=== PATIENT | female | born 1970 | race Two or more races ===

== ENCOUNTER → 2024-08-13 | Outpatient (CLI) | payer MEDICAID, SELFPAY ==
--- NOTE | 2024-08-13 11:00 | XR_ITS ---
Examination: Screening digital mammography, bilateral Computer aided detection 3-D breast Tomosynthesis, bilateral Date and time of exam: August 13, 2024 1122 hours Compared to mammograms dating to January 01, 2013 Indication: Screening Technique: Nonmagnified MLO, CC views of the breasts to been obtained, reconstructed from 3-D Tomosynthesis images. R2 computer aided detection program utilized for evaluation of suspicious masses and/or abnormal calcifications. 3-D Tomosynthesis images obtained. Findings: The breasts are heterogeneously dense, which may obscure small masses 14 mm focal asymmetry 12:00 position left breast mid depth Impression: BI-RADS Category 0: Incomplete: Need additional imaging evaluation 14 mm focal asymmetry 12:00 position left breast mid depth, recommend follow-up spot tomographic views of this asymmetry as well as bilateral breast sonography to complete workup
== END | disposition home or self-care (01) ==
PROVIDERS: PCP Registered Nurse Community Health; Referring Provider Registered Nurse Community Health; Visit Provider Registered Nurse Community Health
DX: Z12.31 Encounter for screening mammogram for malignant neoplasm of breast (principal); R92.333 Mammographic heterogeneous density, bilateral breasts; N64.89 Other specified disorders of breast
CPT/HCPCS: 77063; 77067

== ENCOUNTER → 2024-09-29 | Outpatient (CLI) | payer MEDICAID, SELFPAY ==
--- NOTE | 2024-09-29 09:30 | XR_ITS ---
Examination: Ultrasound soft tissue extremity right groin Date and time: September 29, 2024 1008 hours INDICATIONS: Palpable lump in the right groin noticed beginning several years ago. TECHNIQUE AND FINDINGS: Sonographic images soft tissue right groin No cystic or solid mass IMPRESSION: No cystic or solid mass
== END | disposition home or self-care (01) ==
PROVIDERS: PCP Registered Nurse Community Health; Referring Provider Registered Nurse Community Health; Visit Provider Registered Nurse Community Health
DX: R10.31 Right lower quadrant pain (principal)
CPT/HCPCS: 76882

== ENCOUNTER → 2024-10-01 | Outpatient (CLI) | payer MEDICAID, SELFPAY ==
--- NOTE | 2024-10-01 12:30 | XR_ITS ---
Examination: Breast ultrasound complete, bilateral Date and time of exam: October 06, 2024 1222 hours INDICATIONS: Mammogram August 13, 2024 14 mm focal asymmetry 12:00 position left breast Technique: Real-time grayscale ultrasonographic imaging bilateral breasts, including all 4 quadrants as well as nipple retroareolar and axillary regions. Findings: Sonographic images right breast 12:00 cyst 6 x 5 mm No solid nodules Sonographic images left breast 12:00 nodule circumscribed hyperechoic 5 x 4 mm IMPRESSION: BI-RADS Category 3: Probably benign findings Recommend 1 additional 6 month left breast sonogram follow-up to document stability of 12:00 nodule left breast described above
--- NOTE | 2024-10-01 13:30 | XR_ITS ---
Examination: Diagnostic digital mammography, unilateral, left Computer aided detection 3-D breast Tomosynthesis, unilateral Date and time of exam: October 01, 2024 1347 hours INDICATIONS: Mammogram August 13, 2024 14 mm focal asymmetry 12:00 position left breast Technique: Nonmagnified MLO, CC views of the left breast have been obtained, reconstructed from 3-D Tomosynthesis images. R2 computer aided detection program utilized for evaluation of suspicious masses and/or abnormal calcifications. 3-D Tomosynthesis images obtained. Findings: The breast is heterogeneously dense, which may obscure small masses No suspicious mass is depicted on the spot compression views Impression: BI-RADS category 2: Benign findings Return to yearly follow-up mammography Please see the left breast sonogram report today indicating 12:00 nodule left breast recommend 6 month follow-up left breast sonography
== END | disposition home or self-care (01) ==
PROVIDERS: PCP Registered Nurse Community Health; Referring Provider Registered Nurse Community Health; Visit Provider Registered Nurse Community Health
DX: R92.322 Mammographic fibroglandular density, left breast (principal); N63.25 Unspecified lump in the left breast, overlapping quadrants
CPT/HCPCS: 76641; 77061; 77065; G0279